=== PATIENT | female | born 1955 | race Caucasian/White ===

== ENCOUNTER → 2018-08-01 | Outpatient (CLI) | payer BC | LOC: MC.RAD 15:14 | DX: Z12.31 Encounter for screening mammogram for malignant neoplasm of breast (principal) ==

== ENCOUNTER → 2020-02-26 | Outpatient (CLI) | payer BC | LOC: MC.RAD 02-03 07:45 | DX: Z12.31 Encounter for screening mammogram for malignant neoplasm of breast (principal); N63.20 Unspecified lump in the left breast, unspecified quadrant ==

== ENCOUNTER → 2020-03-03 | Outpatient (CLI) | payer BC | LOC: MC.RAD 07:00 | DX: N63.20 Unspecified lump in the left breast, unspecified quadrant (principal); N64.89 Other specified disorders of breast ==

== ENCOUNTER 2023-01-21 05:49 | Emergency (ER) | payer MEDICARE ==
[~2023-01-21] VITALS: Ht 167.6 cm; Wt 72.7 kg
[2023-01-21 05:56] VITALS: TEMP 98.1
[2023-01-21 06:14] LABS: BASO % 0.3 % (0.0-2.0); EOS # 0.1 K/mm3 (0.0-0.7); EOS % 0.9 % (0.0-4.0); GRAN # 6.9 K/mm3 (1.4-6.5); GRAN % 74.7 % (42.2-75.2); HEMOGLOBIN 11.2 g/dl (12.5-16.0); LYMPH # 1.7 K/mm3 (1.2-3.4); LYMPH % 18.2 % (20.0-51.0); MEAN CELL VOLUME 95 fl (80.0-100.0); MEAN CORPUSCULAR HEMOGLOBIN 32 pg (27-31); MEAN CORPUSCULAR HGB CONC 33 g/dl (33.0-37.0); MEAN PLATELET VOLUME 9.4 fl (7.4-10.4); MONO # 0.5 K/mm3 (0.1-0.6); MONO % 5.5 % (1.7-9.3); PLATELET COUNT 307 K/mm3 (130-400); RED BLOOD COUNT 3.53 M/mm3 (4.10-5.30)
[2023-01-21 06:24] LABS: HEMATOCRIT 33.6 % (37.0-47.0)
[2023-01-21 06:29] LABS: ALBUMIN 3.3 gm/dL (3.4-4.8); BILIRUBIN,TOTAL 0.9 mg/dL (0.2-1.2); CALCIUM 9.4 mg/dL (8.4-10.2); CREATININE, serum 0.66 mg/dL (0.57-1.11); POTASSIUM 3.4 mmol/L (3.5-4.5); TOTAL PROTEIN 7.2 gm/dL (6.2-8.1)
[2023-01-21 06:34] LABS: TROPONIN-I 0.01 ng/mL (0.00-0.033)
[2023-01-21 06:59] LABS: COLLECTION METHOD CLEAN CATCH
[2023-01-21 07:07] LABS: URINE APPEARANCE Clear (CLEAR/HAZY); URINE BLOOD TRACE-INTACT (NEGATIVE); URINE COLOR Yellow (YELLOW); URINE GLUCOSE Negative (NEGATIVE); URINE KETONE 2+ (NEGATIVE); URINE NITRATE Negative (NEGATIVE); URINE PROTEIN(semi-quant) Negative (NEGATIVE); URINE UROBILINOGEN 0.2 E.U/dL (0.2-1.0)
[2023-01-21 07:29] LABS: SQUAMOUS EPITHELIAL 0-2 /hpf (0-10); URINE RBC 0-2 /hpf (0-2)
[2023-01-21] MEDS ORDERED: ZOFRAN ODT4 MG PO (08:43)
[2023-01-21] MEDS ORDERED: MIRALAX238G PO (08:43)
[2023-01-21 08:51] VITALS: BP 141/56; PULSE 99
== END 2023-01-21 08:57 | disposition home or self-care (01) ==
LOC: COL.ER 05:49
PROVIDERS: Emergency Medicine
DX: K59.00 Constipation, unspecified (principal); K76.89 Other specified diseases of liver; R11.0 Nausea; Z96.642 Presence of left artificial hip joint
CPT/HCPCS: J7040; J7120; Q9967